=== PATIENT | female | born 1955 | race African-American/Black ===

== ENCOUNTER 2018-01-11 14:06 | Observation (INO) | payer SELFPAY ==
[2018-01-11] MEDS ORDERED: Acetaminophen 325 MG TAB PO PRN (15:51)
[2018-01-11] MEDS ORDERED: Ondansetron HCl/PF 4 MG/2 ML Vial IVP PRN (15:51)
[2018-01-11] MEDS ORDERED: Nitroglycerin 0.4 MG TAB (25 Tab Bottle) PO PRN (15:51)
[2018-01-11] MEDS ORDERED: Bisacodyl 5 MG TAB PO PRN (15:51)
[2018-01-11] MEDS ORDERED: Ketorolac Tromethamine 30 MG/ML VIAL IVP PRN (16:05)
[2018-01-11] MEDS ORDERED: Acetaminophen/Codeine 30-300mg Tablet PO PRN ×2 (16:06)
[2018-01-11] MEDS ORDERED: traMADol HCl 50 MG TAB PO PRN (16:06)
[2018-01-11 16:24] LABS: Troponin I Less than 0.010 ng/mL (< 0.028)
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
[2018-01-11 16:34] LABS: ALT (SGPT) 19 U/L (8-55); AST (SGOT) 26 U/L (5-34); Albumin 4.1 g/dL (3.4-4.8); Alkaline Phosphatase 63 U/L (40-150); Bilirubin, Direct 0.3 mg/dL (0.1-0.3); Bilirubin, Total 0.5 mg/dL (0.2-1.2); Protein, Total 7.5 g/dL (6.0-8.3)
[2018-01-11] MEDS ORDERED: Morphine 4 MG/ML VIAL ONE (16:50)
[2018-01-11] MEDS ORDERED: Nicotine 14 MG PATCH TD SCH (17:00)
[2018-01-11 17:11] VITALS: BMI 19.8
[2018-01-11] MEDS ORDERED: Sodium Chloride 0.65% Nasal 44 ML BOT EA NARE PRN (18:29)
[2018-01-11 18:52] LABS: Troponin I Less than 0.010 ng/mL (< 0.028)
[2018-01-11 21:31] LABS: Troponin I Less than 0.010 ng/mL (< 0.028)
[2018-01-12 05:17] LABS: Anion Gap 10 mmol/L (10-20); BUN (Urea Nitrogen) 15 mg/dL (9.8-20.1); Calc. Creatinine Clearance 51 mL/min (70-130); Calcium 8.8 mg/dL (7.8-10.44); Carbon Dioxide 21 mmol/L (23-31); Chloride 110 mmol/L (98-107); Estimated GFR-MDRD 71; Glucose 86 mg/dL (80-115); Potassium 4.1 mmol/L (3.5-5.1); Sodium 137 mmol/L (136-145)
[2018-01-12 05:41] LABS: Hemoglobin 12.9 g/dL (12.0-16.0); Lymphocytes 56 % (21-51); MDiff Complete? YES; Mean Corpuscular Volume 90.7 fl (81.0-99.0); Mean Platelet Volume 7.9 fL (7.4-10.4); Monocytes 7 % (0-10); Neutrophil 30 % (42-75); PLT Morphology Comment Appears Adequate; Platelet Count 198 thou/uL (130-400); RBC Distribution Width 13.3 % (11.5-14.5); RBC Morphology Normal; Reactive Lymphocytes 7 % (0-10); Red Blood Cell (RBC) Count 4.44 mill/uL (4.20-5.40); White Blood Cell (WBC) Count 5.1 thou/uL (4.8-10.8)
[2018-01-12] MEDS ORDERED: Aspirin 325 MG TAB PO SCH (09:00)
[2018-01-12] MEDS ORDERED: Enoxaparin Sodium 40 MG/0.4 ML SYRINGE SC SCH (09:00)
--- NOTE | 2018-01-12 14:51 | NM ---
NUCLEAR MEDICINE CARDIAC PERFUSION EXAMINATION WITH EJECTION FRACTION: HISTORY: A 62-year-old female with chest pain. TECHNIQUE: A single-day nuclear medicine cardiac perfusion examination was performed. Rest images were obtained using 10.1 mCi of Technetium 99m sestamibi. Stress images were obtained using 30.9 mCi of Technetiu m 99m sestamibi and LexiScan. FINDINGS: Tomographic images showed no fixed or reversible perfusion defects. Gated images show normal wall mo tion with an ejection fraction of greater than 70%.%. EDV is 14 mL. LHR is 0.3. TID is 1.2. IMPRESSION: No evidence of ischemia. POS: THANG
[2018-01-12] MEDS ORDERED: Regadenoson 0.4 MG/5 ML SYRINGE ONE (15:04)
[2018-01-12 16:01] VITALS: BP 153/83; TEMP 98.6
--- NOTE | 2018-01-12 22:30 | DIS ---
PRIMARY CARE PROVIDER: Aleida Enriquez NP DATE OF ADMISSION: 01/11/2018 DATE OF DISCHARGE: 01/12/2018 DISCHARGE DIAGNOSIS: Chest pain. CONDITION OF PATIENT AT THE TIME OF DISCHARGE: Stable. I assessed Ms. Watts on the day of discharg e. She reports the chest pain and back pain have improved. PHYSICAL EXAMINATION: VITAL SIGNS: Stable. HEART: S1 and S2 are heard, regular. LUNGS: Clear to auscultation bilaterally. DISCHARGE MEDICATIONS: Tylenol No. 3 one tablet every 8 hours as needed and nicotine 14 mg patch dayday ly. HOSPITAL COURSE: Ms. Watts is a pleasant 62-year-old lady who was admitted to [facility] on 01/11/2018 for chest and upper back pain, most likely musculoskeletal. She had a low D-dimer. She also had a nuclear stress test, which did not show any evidence of ischemia. Left maria tricular ejection fraction was greater than 70%. She does have slightly elevated TID of 1.2. She is advised to follow up with her primary care provider for the same for possible Cardiology referral. Ms. Watts also has lymphocytosis of unknown etiology. She will need further workup through her [facility] care provider. On the day of discharge, she has white count 5100, of which 56% are lymphocytes and 30% are neutrophi ls, hemoglobin 12.9, and platelet count 198,000. Sodium 137, potassium 4.1, creatinine 0.96 and carb on dioxide 21. Many thanks for allowing me to participate in your patient's care. Please feel free to contact me wi th any questions or concerns. DISCHARGE DESTINATION: Home.
== END 2018-01-12 16:08 | disposition home or self-care (01) ==
LOC: ERS 14:06 → 2SW 15:38
PROVIDERS: ADMIT Internal Medicine; ATTEND Internal Medicine
DX: R07.89 Other chest pain (principal); F17.210 Nicotine dependence, cigarettes, uncomplicated
CPT/HCPCS: 36415; 78452; 80048; 80076; 85025; 85379; 93005; 93017; 94760; 96372; 96374; 96375; A9500; G0378; J1650; J1885; J2270; J2785